=== PATIENT | female | born 1950 | race Caucasian/White ===

== ENCOUNTER 2019-08-07 17:17 | Inpatient (IN) ==
[2019-08-07] MEDS ORDERED: Albuterol 2.5 MG/3 ML NEBULIZER IH ONE (18:40)
[2019-08-07] MEDS ORDERED: methylPREDNISolone 125 MG/2 ML VIAL IVP ONE (18:40)
[2019-08-07] MEDS ORDERED: Ipratropium/Albuterol Neb 3 ML IH ONE (18:40)
[2019-08-07] MEDS ORDERED: levoFLOXacin 500 MG/100 ML 500 MG/100 ML BAG IVPB ONE (18:42)
[2019-08-07] MEDS ORDERED: *HR* LORazepam 2 MG/ML VIAL IVP ONE (19:14)
[2019-08-07 19:18] LABS: ABG Base Excess 2 mEq/L (-2 to 3); ABG HCO3 22 mEq/L (21-27); ABG Oxygen Saturation 92 % (95-98); ABG PCO2 22 mmHg (35-45); ABG PO2 50 mmHg (85-104); ABG TCO2 23 mEq/L (20-26)
[2019-08-07 19:30] LABS: Hematocrit 33.3 % (35.3-44.9); Hemoglobin 10.9 g/dL (11.5-15.4); Mean Corpuscular HGB Conc 32.7 g/dL (31.6-35.5); Mean Corpuscular Hemoglobin 27.9 pg (28.0-33.3); Mean Corpuscular Volume 85.2 fL (83.0-100.0); Monocytes # 0.3 K/mcL (0.0-1.3); Platelet Count 448 K/mcL (140-400); Red Blood Count 3.91 M/mcL (3.82-4.97); Red Cell Distribution Width 15.8 % (11.5-14.5); White Blood Count 15.8 K/mcL (4.3-11.1)
[2019-08-07 19:37] LABS: INR 1.1; Prothrombin Time 12.6 Seconds (9.4-12.1)
[2019-08-07 19:40] LABS: Activated Partial Thrombo Time 35.8 Seconds (26.0-36.0)
[2019-08-07 19:44] LABS: BUN/Creatinine Ratio 10 (6-26); Blood Urea Nitrogen 8 mg/dL (8-23); Calcium 9.2 mg/dL (8.6-10.3); Carbon Dioxide 23 mEq/L (23-29); Chloride 92 mEq/L (98-107); Glucose 127 mg/dL (70-105); Osmolality,Calculated 268 (280-300); Potassium 3.6 mEq/L (3.5-5.1); Sodium 129 mEq/L (136-145); eGFR For African Americans > 60 (> 60); eGFR For Non-African Americans > 60 (> 60)
[2019-08-07] MEDS ORDERED: Isovue-370 500 ML BOTTLE IVP ONE (19:50)
[2019-08-07 19:54] LABS: Troponin I < 0.03 ng/mL (< 0.04)
[2019-08-07 19:58] LABS: Lymphocytes # 0.6 K/mcL (0.6-4.6); Neutrophils # 14.5 K/mcL (1.6-8.9)
[2019-08-07] MEDS ORDERED: Naloxone 0.4 MG/ML INJ IVP PRN ×2 (21:12→22:27)
[2019-08-07] MEDS ORDERED: levoFLOXacin 500 MG/100 ML 500 MG/100 ML BAG IVPB SCH (22:00)
[2019-08-07] MEDS ORDERED: KETOTIFEN FUMARATE OP PRN (23:11)
[2019-08-08] MEDS: *HR* HYDROcodone/Acet 5/325 mg TABLET PO PRN ×3 (02:10→21:01)
[2019-08-08] MEDS ORDERED: Ipratropium/Albuterol Neb 3 ML IH SCH (05:00)
[2019-08-08] MEDS: Ipratropium/Albuterol Neb 3 ML IH SCH ×5 (06:27→23:53)
[2019-08-08] MEDS: *HR* Heparin 5,000 UNIT/ML VIAL SQ SCH ×3 (06:27→21:00)
[2019-08-08] MEDS: MethylPREDNISolone 40 MG/ML VIAL IVP SCH ×4 (08:04→21:00)
[2019-08-08] MEDS: Budesonide/Formoterol 80/4.5 1 PUFF INH IH SCH ×2 (08:22→21:00)
[2019-08-08] MEDS ORDERED: *HR* LORazepam 2 MG/ML VIAL IVP ONE (08:23)
[2019-08-08] MEDS ORDERED: Folic Acid 1 MG TABLET PO SCH (09:00)
[2019-08-08] MEDS ORDERED: Ascorbic Acid 500 MG TABLET PO SCH (09:00)
[2019-08-08] MEDS ORDERED: Ergocalciferol (VIT D2) 50,000 UNIT (1.25MG) CAP PO SCH (09:00)
[2019-08-08] MEDS ORDERED: GABAPENTIN PO SCH (09:00)
[2019-08-08] MEDS ORDERED: MethylPREDNISolone 40 MG/ML VIAL IVP SCH (09:00)
[2019-08-08 09:21] LABS: Hematocrit 28.2 % (35.3-44.9); Hemoglobin 9.6 g/dL (11.5-15.4); Mean Corpuscular Hemoglobin 28.2 pg (28.0-33.3); Mean Corpuscular Volume 82.7 fL (83.0-100.0); Mean Platelet Volume 8.7 fL (9.4-12.4); Platelet Count 353 K/mcL (140-400); Red Blood Count 3.41 M/mcL (3.82-4.97); Red Cell Distribution Width 15.6 % (11.5-14.5); White Blood Count 17.2 K/mcL (4.3-11.1)
[2019-08-08 09:35] LABS: Alanine Aminotransferase 17 Units/L (7-52); Albumin 3.6 g/dL (3.5-5.7); Albumin/Globulin Ratio 1.2 (1.1-2.2); Alkaline Phosphatase 301 Units/L (34-104); Aspartate Amino Transferase 17 Units/L (13-39); BUN/Creatinine Ratio 15 (6-26); Bilirubin,Total 0.4 mg/dL (0.3-1.0); Blood Urea Nitrogen 14 mg/dL (8-23); Calcium 8.7 mg/dL (8.6-10.3); Carbon Dioxide 20 mEq/L (23-29); Chloride 92 mEq/L (98-107); Globulin 3.1 g/dL (2.4-3.5); Glucose 161 mg/dL (70-105); Magnesium 1.7 mg/dL (1.6-2.6); Osmolality,Calculated 266 (280-300); Potassium 3.3 mEq/L (3.5-5.1); Sodium 126 mEq/L (136-145); Total Protein 6.7 g/dL (6.4-8.9); eGFR For African Americans > 60 (> 60); eGFR For Non-African Americans > 60 (> 60)
[2019-08-08] MEDS: GuaiFENesin/Codeine Oral Soln 5 ML UDC PO PRN ×2 (11:56→20:52)
[2019-08-08] MEDS: Benzonatate 100 MG CAPSULE PO PRN (17:19)
[2019-08-08 18:51] LABS: Adenovirus Not Detected (Not Detect); Bordetella Pertussis Not Detected (Not Detect); Coronavirus 229E Not Detected (Not Detect); Coronavirus HKU1 Not Detected (Not Detect); Coronavirus NL63 Not Detected (Not Detect); Coronavirus OC43 Not Detected (Not Detect); Human Metapneumovirus Not Detected (Not Detect); Human Rhinovirus/Enterovirus Not Detected (Not Detect); Influenza A Subtype 2009 H1 Not Detected (Not Detect); Influenza B Not Detected (Not Detect); Parainfluenza Virus 1 Not Detected (Not Detect); Parainfluenza Virus 2 Not Detected (Not Detect); Parainfluenza Virus 3 Not Detected (Not Detect); Parainfluenza Virus 4 Not Detected (Not Detect); Respiratory Syncytial Virus Not Detected (Not Detect)
[2019-08-08 18:52] LABS: Chlamydophila pneumoniae Not Detected (Not Detect); Mycoplasma pneumoniae Not Detected (Not Detect)
[2019-08-08] MEDS: *HR* LORazepam 1 MG TABLET PO PRN (21:01)
[2019-08-08] MEDS ORDERED: levoFLOXacin 500 MG/100 ML 500 MG/100 ML BAG IVPB SCH (22:00)
[2019-08-09] MEDS: *HR* HYDROcodone/Acet 5/325 mg TABLET PO PRN ×2 (01:28→15:32)
[2019-08-09] MEDS: Benzonatate 100 MG CAPSULE PO PRN ×3 (01:28→23:34)
[2019-08-09] MEDS: *HR* LORazepam 2 MG/ML VIAL IVP PRN ×2 (01:30→06:49)
[2019-08-09] MEDS: GuaiFENesin/Codeine Oral Soln 5 ML UDC PO PRN ×3 (03:41→21:00)
[2019-08-09] MEDS: Ipratropium/Albuterol Neb 3 ML IH SCH ×5 (03:41→20:23)
[2019-08-09] MEDS: *HR* Heparin 5,000 UNIT/ML VIAL SQ SCH ×3 (05:21→21:01)
[2019-08-09 06:06] LABS: Hematocrit 25.3 % (35.3-44.9); Hemoglobin 8.6 g/dL (11.5-15.4); Mean Corpuscular Hemoglobin 27.9 pg (28.0-33.3); Mean Corpuscular Volume 82.1 fL (83.0-100.0); Mean Platelet Volume 9.5 fL (9.4-12.4); Platelet Count 362 K/mcL (140-400); Red Blood Count 3.08 M/mcL (3.82-4.97); Red Cell Distribution Width 15.4 % (11.5-14.5); White Blood Count 16.2 K/mcL (4.3-11.1)
[2019-08-09 06:19] LABS: Alanine Aminotransferase 18 Units/L (7-52); Albumin 3.4 g/dL (3.5-5.7); Albumin/Globulin Ratio 1.3 (1.1-2.2); Alkaline Phosphatase 252 Units/L (34-104); Aspartate Amino Transferase 23 Units/L (13-39); BUN/Creatinine Ratio 18 (6-26); Bilirubin,Total 0.3 mg/dL (0.3-1.0); Blood Urea Nitrogen 13 mg/dL (8-23); Calcium 8.5 mg/dL (8.6-10.3); Carbon Dioxide 24 mEq/L (23-29); Chloride 88 mEq/L (98-107); Globulin 2.6 g/dL (2.4-3.5); Glucose 192 mg/dL (70-105); Magnesium 1.8 mg/dL (1.6-2.6); Osmolality,Calculated 259 (280-300); Potassium 3.5 mEq/L (3.5-5.1); Sodium 122 mEq/L (136-145); eGFR For African Americans > 60 (> 60); eGFR For Non-African Americans > 60 (> 60)
[2019-08-09] MEDS: Budesonide/Formoterol 80/4.5 1 PUFF INH IH SCH ×2 (08:10→20:23)
[2019-08-09] MEDS: MethylPREDNISolone 40 MG/ML VIAL IVP SCH ×4 (09:18→21:01)
[2019-08-09] MEDS: 0.9 % Sodium Chloride 1,000 ML IVC SCH ×2 (09:18→17:35)
[2019-08-09] MEDS: Pregabalin 75 MG CAPSULE PO SCH ×2 (17:32→21:00)
[2019-08-09] MEDS: rOPINIRole 1 MG TABLET PO SCH (21:01)
[2019-08-09] MEDS: *HR* LORazepam 1 MG TABLET PO PRN (21:01)
[2019-08-10] MEDS: Ipratropium/Albuterol Neb 3 ML IH SCH ×6 (00:12→22:30)
[2019-08-10] MEDS: GuaiFENesin/Codeine Oral Soln 5 ML UDC PO PRN ×4 (01:27→20:59)
[2019-08-10] MEDS: 0.9 % Sodium Chloride 1,000 ML IVC SCH ×4 (02:14→21:00)
[2019-08-10] MEDS: Benzonatate 100 MG CAPSULE PO PRN ×3 (04:28→20:58)
[2019-08-10] MEDS: *HR* Heparin 5,000 UNIT/ML VIAL SQ SCH ×3 (04:28→20:59)
[2019-08-10 05:57] LABS: Hematocrit 24.8 % (35.3-44.9); Hemoglobin 8.3 g/dL (11.5-15.4); Mean Corpuscular HGB Conc 33.5 g/dL (31.6-35.5); Mean Corpuscular Hemoglobin 27.7 pg (28.0-33.3); Mean Corpuscular Volume 82.7 fL (83.0-100.0); Platelet Count 324 K/mcL (140-400); Red Cell Distribution Width 15.7 % (11.5-14.5); White Blood Count 15.5 K/mcL (4.3-11.1)
[2019-08-10 06:12] LABS: BUN/Creatinine Ratio 11 (6-26); Blood Urea Nitrogen 7 mg/dL (8-23); Calcium 8.1 mg/dL (8.6-10.3); Carbon Dioxide 24 mEq/L (23-29); Chloride 98 mEq/L (98-107); Glucose 162 mg/dL (70-105); Osmolality,Calculated 270 (280-300); Potassium 3.2 mEq/L (3.5-5.1); Sodium 129 mEq/L (136-145); eGFR For African Americans > 60 (> 60); eGFR For Non-African Americans > 60 (> 60)
[2019-08-10] MEDS: Budesonide/Formoterol 80/4.5 1 PUFF INH IH SCH ×2 (07:50→22:30)
[2019-08-10] MEDS: MethylPREDNISolone 40 MG/ML VIAL IVP SCH ×2 (08:22→17:51)
[2019-08-10] MEDS: Pregabalin 75 MG CAPSULE PO SCH ×3 (08:22→20:59)
[2019-08-10] MEDS: levoFLOXacin 750 MG/150 ML 750 MG/150 ML BAG IVPB SCH (08:22)
[2019-08-10] MEDS: Ondansetron ODT 4 MG TAB.RAPDIS PO PRN ×2 (11:37→17:51)
[2019-08-10] MEDS: rOPINIRole 1 MG TABLET PO SCH (20:58)
[2019-08-10] MEDS: *HR* LORazepam 1 MG TABLET PO PRN (20:59)
[2019-08-10] MEDS: *HR* HYDROcodone/Acet 5/325 mg TABLET PO PRN (21:00)
[2019-08-11] MEDS: Ipratropium/Albuterol Neb 3 ML IH SCH ×4 (03:22→12:10)
[2019-08-11] MEDS: *HR* Heparin 5,000 UNIT/ML VIAL SQ SCH (05:31)
[2019-08-11] MEDS: 0.9 % Sodium Chloride 1,000 ML IVC SCH ×2 (05:31→05:45)
[2019-08-11] MEDS: GuaiFENesin/Codeine Oral Soln 5 ML UDC PO PRN ×2 (05:32→10:50)
[2019-08-11] MEDS: MethylPREDNISolone 40 MG/ML VIAL IVP SCH (05:32)
[2019-08-11] MEDS: Budesonide/Formoterol 80/4.5 1 PUFF INH IH SCH (08:19)
[2019-08-11 10:38] LABS: Basophils % 0.1 %; Hematocrit 25.4 % (35.3-44.9); Hemoglobin 8.4 g/dL (11.5-15.4); Immature Granulocytes % 6.6 % (0-4); Lymphocytes # 0.6 K/mcL (0.6-4.6); Lymphocytes % 3.7 %; Mean Corpuscular HGB Conc 33.1 g/dL (31.6-35.5); Mean Corpuscular Hemoglobin 28.2 pg (28.0-33.3); Mean Corpuscular Volume 85.2 fL (83.0-100.0); Mean Platelet Volume 8.6 fL (9.4-12.4); Monocytes # 0.9 K/mcL (0.0-1.3); Monocytes % 5.2 %; Neutrophils # 13.9 K/mcL (1.6-8.9); Platelet Count 300 K/mcL (140-400); Red Blood Count 2.98 M/mcL (3.82-4.97); Red Cell Distribution Width 16.2 % (11.5-14.5); Segmented Neutrophils % 84.4 %; White Blood Count 16.5 K/mcL (4.3-11.1)
[2019-08-11] MEDS: levoFLOXacin 750 MG/150 ML 750 MG/150 ML BAG IVPB SCH (10:45)
[2019-08-11] MEDS: *HR* HYDROcodone/Acet 5/325 mg TABLET PO PRN (10:50)
[2019-08-11] MEDS: Pregabalin 75 MG CAPSULE PO SCH (10:50)
[2019-08-11 10:52] LABS: Blood Urea Nitrogen 7 mg/dL (8-23); Calcium 7.9 mg/dL (8.6-10.3); Carbon Dioxide 23 mEq/L (23-29); Chloride 105 mEq/L (98-107); Glucose 137 mg/dL (70-105); Osmolality,Calculated 278 (280-300); Potassium 3.3 mEq/L (3.5-5.1); Sodium 134 mEq/L (136-145)
[2019-08-11 10:57] LABS: Hypochromasia Present (Not Present); Large Platelets Present (Not Present); Platelet Estimate Normal (Normal)
[2019-08-11 10:58] LABS: Microcytosis Present (Not Present); Reactive Lymphocytes Present (Not Present)
[2019-08-11 11:03] VITALS: BP 145/76
[2019-08-11 11:07] LABS: BUN/Creatinine Ratio 10 (6-26); eGFR For African Americans > 60 (> 60); eGFR For Non-African Americans > 60 (> 60)
== END 2019-08-11 14:30 | disposition home or self-care (01) | DRG 190 ==
LOC: EMEROOGRE 17:17 → INPGRE 17:17
PROVIDERS: ADMIT Family Medicine; ATTEND Family Medicine